=== PATIENT | male | born 1975 | race Caucasian/White ===

== ENCOUNTER 2019-06-20 09:10 | Emergency (ER) | payer OTHER, SELFPAY ==
[2019-06-20 09:18] VITALS: BP 119/71; PULSE 64; RESP 16; TEMP 37; O2SAT 99
--- NOTE | 2019-06-20 09:47 | ED.GENADUL_ITS ---
Discharge Plan Disposition Patient Disposition: HOME Condition: Good Discharge Details Chief Complaint: EyeProblem Clinical Impression: Foreign body in eye, Psoriasis, RAD (reactive airway disease) Primary Care Provider: Alicia,Local ED Provider: Pippa Centeno Home Meds and New Rx's Prescriptions: New Combivent Respimat 20-100 mcg/actuation mist 1 puff IH Q4H PRN (Reason: shortness of breath or wheezing) Qty: 4 RF: 0 prednisone 20 mg tablet 60 mg PO DAILY 5 Days Qty: 15 RF: 0 Continued quetiapine [Seroquel] 200 mg Tablet 200 mg PO QHS RF: 0 topiramate [Topamax] 200 mg Tablet 200 mg PO BID RF: 0 Combivent Respimat 20-100 mcg/actuation Mist 2 puff INHALATION Q4H RF: 0 triamcinolone acetonide 0.5 % Cream 1 applic TOPICAL BID RF: 0 Discharge Instructions Instructions: Bacitracin (Into the eye), Eye Foreign Body (ED) Additional Instructions: Encourage hydration. May use Tylenol and ibuprofen as needed for discomfort. Please apply half an inch of the bacitracin into your left eye 4 times daily for the next 5 days. Please call [facility] Saturday to schedule follow-up appointment. [phone] If you develop fever/chills, increased pain, change in her vision, discharge or other new/worsening symptoms please seek care urgently once again. I have asked her hospice care transitions coordinator help establish local family care physician. Please take the prednisone as prescribed for your psoriasis outbreak. Combivent as previously prescribed, this is been refilled for you. If you develop difficulty breathing, shortness of breath or the new/worsening symptoms please seek care urgently once again. Discharge Data Discharge Date/Time-TO BE ENTERED AT DEPARTURE: 06/20/19 10:19 Medical Decision Making Patient is a 43-year-old male, up-to-date on tetanus, with chief complaint of foreign body in the left eye. He reports that yesterday he was cutting siding from a house when a piece of debris hit him in the left eye. Since that time, he has had a foreign body sensation and pain in the eye, particular when blinking. States that the vision has been slightly blurry. Has not had any fevers or chills. Pain is been consistent, not increasing. No pain when the eyes open and he is moving the eye. On exam, patient had one small area of debris that was white, mostly at dust particle, in the lower lid. He also has a small area of swelling on the inferior medial aspect is likely the area of trauma. No large area of foreign debris, patient initially been concerned that there may be a nail still embedded in the eye. I do not see any evidence of metal or rest. Patient will be placed on antibiotic ointment. Patient also has noted a psoriasis exacerbation and has large areas of psoriasis on the left side of his head, left ear, bilateral elbows and upper extremities. He reports that typically he does a 5- day burst of 60 mg of prednisone is requesting a dosing of this. Is not had this in several months. Patient also reports that he is out of his Combivent and feels like with the change of the seasons he may need this more. Patient is an active smoker and I encouraged smoking cessation as this is likely contributing to his increased need for his inhaler. Patient is new to the area and is moving here soon. I have asked that he follow-up with [facility] regarding his trauma to the left eye. He was given return precautions. All of his questions and concerns were addressed, he is in agreement with this plan. HPI General Mode of arrival: ambulatory . Date/Time Provider Initiated Documentation: 06/20/19 09:47 . Limitations to Documentation: no limitations . Information obtained by: patient and RN notes reviewed . History of Present Illness 43 year old M presents to the emergency department with the chief complaint of left eye pain, FB sensation, described as severe, with intensity rated at 8. Quality is described as aching, and is localized to the eyes. Patient reports no radiation. Patient started experiencing this day(s) (1) and it has been constant. No relieving factors improve symptom(s), No exacerbating factors reported . Patient notes no other symptoms.. Patient did receive the following treatments prior to arrival, none Related Data Home Medications Medication Instructions Recorded Confirmed Combivent Respimat 2 puff INHALATION Q4H 06/20/19 06/20/19 ipratropium-albuterol [Combivent 1 puff IH Q4H PRN #4 gm 06/20/19 Respimat] prednisone 60 mg PO DAILY 5 Days #15 tab 06/20/19 quetiapine [Seroquel] 200 mg PO QHS 06/20/19 06/20/19 topiramate [Topamax] 200 mg PO BID 06/20/19 06/20/19 triamcinolone acetonide 1 applic TOPICAL BID 06/20/19 06/20/19 Previous Rx's Medication Instructions Recorded ipratropium-albuterol [Combivent 1 puff IH Q4H PRN #4 gm 06/20/19 Respimat] prednisone 60 mg PO DAILY 5 Days #15 tab 06/20/19 Allergies Allergy/AdvReac Type Severity Reaction Status Date / Time clarithromycin [From Biaxin] Allergy Hives Unverified 06/20/19 09:15 divalproex sodium Allergy Hives Unverified 06/20/19 09:16 [From Depakote] egg Allergy Anaphylaxsi Unverified 06/20/19 09:15 s General Stated Complaint: EyeProblem SUNSHINE: 4 Review of Systems Constitutional Constitutional: Reports as per HPI, Denies chills, Denies fatigue, Denies fever(s) and Denies headache(s) Eyes Eyes: Reports as per HPI ENT Ears, Nose, Mouth, and Throat: Denies headache(s) Cardiovascular Cardiovascular: Reports as per HPI, Denies chest pain and Denies lightheadedness Respiratory Respiratory: Denies cough Integumentary/Breasts Skin/Breast: Reports as per HPI, Denies rash, Denies skin pain and Denies skin swelling Neurologic Neurologic: Denies headache(s) and Denies radicular pain Endocrine Endocrine: Denies fatigue [facility] Social History Smoking/Tobacco Use Status: Current every day Alcohol Intake: never Substance use type: does not use Do you feel safe at home: Yes Do you feel safe in your relationship?: Yes Exam Const General: cooperative, healthy appearing, comfortable, no acute distress, well developed and well groomed Nutritional Appearance: average body habitus and well nourished Orientation: alert, awake and oriented x3 HENMT Head: normal to inspection, normocephalic and atraumatic Ears: hearing grossly normal bilaterally and external ears normal General nose exam: external nose normal and nares normal Face and sinus: normal facial exam and face symmetric Mouth: oral mucosae normal, lip normal and moist mucous membranes Eyes Visual Tuttle: normal visual tuttle by confrontation Alignment and Position: alignment normal and position normal Periorbital: periorbital findings normal Eyelids: eyelids normal Conjunctivae: conjunctivae normal Sclera: sclerae normal Cornea: corneas abnormal on the left fluorescein used and edema (small area of focal edema consistent with recent trauma), fluorescein used and other (small FB noted under slit lamp in lower lid, removed with qtip) Pupils: PERRL, normal by confrontation and accommodation normal EOM: EOM intact bilaterally Resp Effort & Inspection: normal respiratory effort, able to speak in complete sentences and no respiratory distress Skin General skin exam: no rashes or lesions noted Neuro General: alert, awake and oriented x3 Cranial Nerves: CN's II-XI intact bilaterally Cognition: normal cognition Speech: speech normal Gait: normal gait Psych Appearance: grossly normal and well kempt Mental Status: mental status grossly normal Speech and Movement: speech and movement normal Course Vital Signs Vital signs: Vital Signs Temperature 37 C 06/20/19 09:18 Pulse 64 06/20/19 09:18 Respiratory Rate 16 06/20/19 09:18 Blood Pressure 119/71 06/20/19 09:18 Pulse Oximetry 99 06/20/19 09:18 Temperature 37 C 06/20/19 09:18 Temperature Source Temporal Artery Scan 06/20/19 09:18 Pulse 64 06/20/19 09:18 Respiratory Rate 16 06/20/19 09:18 Respiratory Effort Non-Labored 06/20/19 09:22 Blood Pressure 119/71 06/20/19 09:18 Blood Pressure Position Supine 06/20/19 09:18 Pulse Oximetry 99 06/20/19 09:18 Oxygen Delivery Method Room Air 06/20/19 09:18 Oxygen Flow Rate 0 06/20/19 09:18 Pain Level 8 06/20/19 09:18
[2019-06-20] MEDS: Tetracaine 0.5% 4 ML BTL (10:21)
[2019-06-20] MEDS: Fluorescein STRIPS 100/BOX 1 MG (10:22)
== END 2019-06-20 10:19 | disposition home or self-care (01) ==
PROVIDERS: Emergency Provider Physician Assistant; PCP Family Medicine
DX: T15.92XA Foreign body on external eye, part unspecified, left eye, initial encounter (principal); L40.8 Other psoriasis; J45.909 Unspecified asthma, uncomplicated; F17.210 Nicotine dependence, cigarettes, uncomplicated
CPT/HCPCS: 99283

== ENCOUNTER 2019-08-02 18:39 | Emergency (ER) | payer OTHER, SELFPAY ==
[2019-08-02 18:40] VITALS: BP 135/91; PULSE 80; RESP 16; TEMP 36.9; O2SAT 96
--- NOTE | 2019-08-02 18:40 | ED.GENADUL_ITS ---
Discharge Plan Disposition Patient Disposition: HOME Condition: Stable Discharge Details Chief Complaint: Nk/Back Pain Clinical Impression: Back pain Primary Care Provider: Jeremiah Connell ED Provider: Jose Daniel Chan Home Meds and New Rx's Prescriptions: New methocarbamol 500 mg tablet 1,000 mg PO Q6H Qty: 20 RF: 0 ibuprofen 600 mg tablet 600 mg PO Q6H PRN (Reason: back pain) Qty: 20 RF: 0 Continued quetiapine [Seroquel] 200 mg Tablet 200 mg PO QHS RF: 0 topiramate [Topamax] 200 mg Tablet 200 mg PO BID RF: 0 Combivent Respimat 20-100 mcg/actuation Mist 2 puff INHALATION Q4H RF: 0 Combivent Respimat 20-100 mcg/actuation mist 1 puff IH Q4H PRN (Reason: shortness of breath or wheezing) Qty: 4 RF: 0 betamethasone valerate 0.1 % Ointment 1 applic TOPICAL DIRECTED RF: 0 Discharge Instructions Instructions: Back Pain (ED) Additional Instructions: You were seen in the emergency department today for evaluation of back pain. Take 650 mg of acetaminophen (Tylenol) every 6 hours in addition to 600 mg of ibuprofen every 6 hours. Do not take more Tylenol than this. It can be dangerous to take more than this. Return to the emergency department immediately if you develop any fevers, new weakness, numbness, inability to urinate, leaking of urine or stool, or for any other concerning or worsening symptoms at all. Stand Alone Forms: Work Release Medical Decision Making This patient is a 43-year-old male who presents to the emergency department with chief complaint of back pain. Based on the history, exam, this is not consistent with cauda equina syndrome, cord compression, discitis, osteomyelitis, epidural abscess, epidural hematoma, pyelonephritis, kidney stone. It is most likely musculoskeletal back pain. Patient will be discharged home on ibuprofen every 6 hours in addition to acetaminophen every 6 hours as well as a new prescription for methocarbamol. Patient agrees with his outpatient treatment plan, will be provided return precautions and discharge instructions. HPI My back hurts. This patient is a 43-year-old male who presents to the emergency department with chief complaint of back pain. He states it is a sharp pain, it is in his lower back, radiates into his left hip and sometimes down his leg. Movement of the back makes it worse. He believes he injured it 3 days ago when he slipped walking on some ice. He did not fall down but seemed to make a movement that made his back hurt. The next day he moved heavy boxes. He has taken Tylenol throughout the day yesterday, then he took ibuprofen last night and this morning but it has not helped. No fevers. No urinary incontinence, stool incontinence, numbness or tingling. He recently had a URI but no other illness. Nothing has really made it better. He does have a history of back surgery, laminectomy for back pain. Symptoms have been severe, constant. General Date/Time Provider Initiated Documentation: 08/02/19 18:40 . Related Data Home Medications Medication Instructions Recorded Confirmed Combivent Respimat 1 puff IH Q4H PRN #4 gm 06/20/19 Combivent Respimat 2 puff INHALATION Q4H 06/20/19 06/20/19 quetiapine [Seroquel] 200 mg PO QHS 06/20/19 06/20/19 topiramate [Topamax] 200 mg PO BID 06/20/19 06/20/19 betamethasone valerate 1 applic TOPICAL DIRECTED 08/02/19 08/02/19 ibuprofen 600 mg PO Q6H PRN #20 tab 08/02/19 methocarbamol 1,000 mg PO Q6H #20 tab NS 08/02/19 Previous Rx's Medication Instructions Recorded Combivent Respimat 1 puff IH Q4H PRN #4 gm 06/20/19 ibuprofen 600 mg PO Q6H PRN #20 tab 08/02/19 methocarbamol 1,000 mg PO Q6H #20 tab NS 08/02/19 Allergies Allergy/AdvReac Type Severity Reaction Status Date / Time clarithromycin [From Biaxin] Allergy Hives Unverified 08/02/19 18:47 divalproex sodium Allergy Hives Unverified 08/02/19 18:47 [From Depakote] egg Allergy Anaphylaxsi Unverified 08/02/19 18:47 s General SUNSHINE: 4 Review of Systems Narrative: Gen: no fevers. Card: no chest pain. Resp: No cough, difficulty breathing. Abd: no vomiting, abd pain. The rest of the 10 point review of systems is negative except as described in the HPI and above in the ROS. [facility] Social History Smoking/Tobacco Use Status: Current every day Alcohol Intake: never Drug use: Never Substance use type: does not use Do you feel safe at home: Yes Do you feel safe in your relationship?: Yes Exam Narrative Exam Narrative: Gen: no acute distress, alert. Neck: normal ROM. Lung: no respiratory distress. Abd: soft, non-tender, no hepatosplenomegaly. Upper extremity: no evidence of trauma. Lower extremity: no edema. Neuro: speech normal, no gross motor deficits. 1+ patellar reflexes bilatearlly. strength 5/5 in lower extremities. back: no tenderness, normal inspection. Psych: alert and oriented to person, place time, normal affect. Skin: warm, intact.
[2019-08-02] MEDS: Methocarbamol 500 MG TAB 1000 MG PO (18:54)
[2019-08-02] MEDS: Ketorolac 30 MG/ML VIAL IM (18:54)
[2019-08-02] MEDS: Methocarbamol 500 MG TAB 2000 MG PO (19:09)
== END 2019-08-02 19:10 | disposition home or self-care (01) ==
PROVIDERS: Emergency Provider Emergency Medicine; PCP Family Medicine
DX: M54.5 Low back pain (principal); W18.49XA Other slipping, tripping and stumbling without falling, initial encounter
CPT/HCPCS: 96372; 99284; 99283; J1885

== ENCOUNTER 2019-08-09 12:54 | Emergency (ER) | payer OTHER, SELFPAY ==
[2019-08-09] VITALS (8 sets, daily range): BP systolic 135–139; BP diastolic 83–84; PULSE 82–87; RESP 1–20; TEMP 36.7; O2SAT 97–98
[2019-08-09] MEDS: Albuterol/Ipratropium 3 ML UPD VIAL (13:25)
[2019-08-09] MEDS: Albuterol/Ipratropium 3 ML UPD VIAL 9 ML UPD (13:50)
--- NOTE | 2019-08-09 13:50 | W.ED.GENAD ---
Discharge Plan Disposition Patient Disposition: HOME Condition: Good Discharge Details Chief Complaint: RespSymp Clinical Impression: Asthma exacerbation, Bronchitis Primary Care Provider: Jeremiah Connell ED Provider: Lazaro Dai Home Meds and New Rx's Prescriptions: New ipratropium-albuterol 0.5 mg-3 mg(2.5 mg base)/3 mL solution for nebulization 3 ml IH Q6H Qty: 90 RF: 0 amoxicillin-pot clavulanate [Augmentin] 875-125 mg tablet 1 tab PO BID 10 Days Qty: 20 RF: 0 prednisone 20 mg tablet 60 mg PO DAILY 5 Days Qty: 15 RF: 0 acetaminophen-codeine [Tylenol-Codeine #3] 300-30 mg tablet 1 tab PO BID PRN (Reason: cough) Qty: 6 RF: 0 No Action quetiapine [Seroquel] 200 mg Tablet 200 mg PO QHS RF: 0 topiramate [Topamax] 200 mg Tablet 200 mg PO BID RF: 0 Combivent Respimat 20-100 mcg/actuation Mist 2 puff INHALATION Q4H RF: 0 Combivent Respimat 20-100 mcg/actuation mist 1 puff IH Q4H PRN (Reason: shortness of breath or wheezing) Qty: 4 RF: 0 betamethasone valerate 0.1 % Ointment 1 applic TOPICAL DIRECTED RF: 0 methocarbamol 500 mg tablet 1,000 mg PO Q6H Qty: 20 RF: 0 ibuprofen 600 mg tablet 600 mg PO Q6H PRN (Reason: back pain) Qty: 20 RF: 0 Discharge Instructions Instructions: Asthma (ED), Acute Bronchitis (ED) Additional Instructions: At this time there is no evidence of significant pneumonia on your x-ray. I am concerned that you may have a small pneumonia though in conjunction with an asthma exacerbation. Please use your inhaler, 2 puffs every 12 hours. Please use your new nebulizer as needed every 4-6 hours for the next 2 days. Please take the steroid as directed. Please take the Augmentin antibiotic as directed. As we discussed if your symptoms do not improve please return for further assessment. If you notice any worsening of your symptoms, or any new symptoms such as vomiting, diarrhea, fever, chills, shortness of breath, chest pain, numbness, weakness, or fainting , please return immediately to the emergency department for reevaluation. Please follow up with your primary care provider as soon as possible for reassessment and reevaluation. As always, it was a pleasure participating in your medical care today. Medical Decision Making This is a 43-year-old male with past medical history of asthma, and a family history of alpha-1 antitrypsin which he says he has been tested for but does not have the symptomatic complete allele, who presents today for evaluation of cough and wheeze. He recently moved up here from [place], he states that for the last week he has had a cough, with productive sputum, mild chills, but no fever. He has had mild chest pain when he coughs. He denies any red flags for pulmonary emboli. He is run out of the majority of his medications that he chronically manages his asthma with. He still smokes. He has recently completed a course of 5 days of prednisone at 40 mg daily, as well as Combivent inhaler and azithromycin pack. He has had minimal improvement with this. Exam demonstrates wheezes and reduced air movement however vital signs are normal with no tachycardia hypoxemia or tachypnea. Chest x-ray was ordered which shows no evidence of aris pneumonia, for breathing treatments were given over the course of greater than 2 hours, at the last breathing treatment the patient had notable improvement. Wonder if there was a component of a mucous plug or mild bronchiectasis. Patient is feeling much better, reassessment demonstrates notably improved breath sounds, decreased wheezes. I did discuss imaging options for the patient and at this time through notable discussion, weighing the risks and benefits, and a shared decision making process the patient has refused imaging at this time. Respecting the patient's wishes we will hold off on imaging. Screening EKG was also unremarkable. At this time signs and symptoms are clinically consistent with potential clinical mild pneumonia, bronchitis. Will treat with Augmentin, give him a nebulizer for home use, refill his DuoNeb's for home use, and give a Symbicort for home. We will additionally continue steroids. I did recommend to the patient further imaging but is he is holding off I offered that he can return anytime for additional work-up. I have extensively reviewed the treatment plan and discharge instructions with the patient. I have addressed all patient concerns at this time. The patient was made aware of what symptoms to monitor for that would warrant a return to the emergency department. Discussed the plan with the patient, they demonstrate verbal understanding and agreement with our assessment and plan at this time. EKG 13: 46 Rate 63, intervals normal, sinus rhythm, no significant ST elevations or depressions, no significant T wave inversions, small J-point elevation in V2, less than 1 mm, inconsistent with STEMI. No Q waves. FINDINGS: Lungs: Unremarkable. No consolidation. Pleural space: Unremarkable. No pleural effusion. No pneumothorax. Heart/Mediastinum: Unremarkable. No cardiomegaly. Bones/joints: Unremarkable. IMPRESSION: No acute findings. Thank you for allowing us to participate in the care of your patient. Dictated and Authenticated by: Katharine Harris MD 08/09/2019 3:25 PM Eastern Time ([place] & [place]) HPI General Date/Time Provider Initiated Documentation: 08/09/19 13:27. HPI Narrative: This is a pleasant 43-year-old male with a past medical history of familial alpha-1 antitrypsin deficiency but he is not symptomatic because of this, he does have chronic asthma/COPD, and is a regular smoker. He recently just moved up here from [facility]. He presents today for evaluation of cough mild shortness of breath. Patient states that 1 week ago he began to have a cough with productive yellow-green sputum. He saw an urgent care where he was given 40 mg of prednisone daily for 5 days, and inhaler/Combivent, as well as azithromycin. He is taking this and finished his azithromycin 3 to 4 days ago. He did have mild improvement initially but states that his symptoms have continued. He does admit to mild chest tightness when he coughs, but denies any other significant chest pain. He denies any arm neck or shoulder pain chest heaviness, or bandlike sensation. He denies any numbness tingling or weakness. He has no other complaints at this time. No other modifying factors. Related Data Home Medications Medication Instructions Recorded Confirmed Combivent Respimat 1 puff IH Q4H PRN #4 gm 06/20/19 08/09/19 Combivent Respimat 2 puff INHALATION Q4H 06/20/19 08/09/19 quetiapine [Seroquel] 200 mg PO QHS 06/20/19 08/09/19 topiramate [Topamax] 200 mg PO BID 06/20/19 08/09/19 betamethasone valerate 1 applic TOPICAL DIRECTED 08/02/19 08/09/19 ibuprofen 600 mg PO Q6H PRN #20 tab 08/02/19 08/09/19 methocarbamol 1,000 mg PO Q6H #20 tab NS 08/02/19 08/09/19 acetaminophen-codeine 1 tab PO BID PRN #6 tab 08/09/19 [Tylenol-Codeine #3] amoxicillin-pot clavulanate 1 tab PO BID 10 Days #20 tab 08/09/19 [Augmentin] ipratropium-albuterol 3 ml IH Q6H #90 ml 08/09/19 prednisone 60 mg PO DAILY 5 Days #15 tab 08/09/19 Previous Rx's Medication Instructions Recorded Combivent Respimat 1 puff IH Q4H PRN #4 gm 06/20/19 ibuprofen 600 mg PO Q6H PRN #20 tab 08/02/19 methocarbamol 1,000 mg PO Q6H #20 tab NS 08/02/19 acetaminophen-codeine 1 tab PO BID PRN #6 tab 08/09/19 [Tylenol-Codeine #3] amoxicillin-pot clavulanate 1 tab PO BID 10 Days #20 tab 08/09/19 [Augmentin] ipratropium-albuterol 3 ml IH Q6H #90 ml 08/09/19 prednisone 60 mg PO DAILY 5 Days #15 tab 08/09/19 Allergies Allergy/AdvReac Type Severity Reaction Status Date / Time clarithromycin [From Biaxin] Allergy Hives Unverified 08/09/19 16:06 divalproex sodium Allergy Hives Unverified 08/09/19 16:06 [From Depakote] egg Allergy Anaphylaxsi Unverified 08/09/19 16:06 s General Stated Complaint: RespSymp SUNSHINE: 4 Review of Systems All systems reviewed & are unremarkable except as noted in HPI and below PFSH Social History Smoking/Tobacco Use Status: Current every day Alcohol Intake: never Drug use: Never Substance use type: does not use Do you feel safe at home: Yes Do you feel safe in your relationship?: Yes Exam Narrative Exam Narrative: 1.Const: Well-nourished, Well-developed, appearing stated age 2.Eyes: PERRL, no conjunctival injection, and symmetrical lids. 3.ENT: Atraumatic external nose and ears. Moist MM. Neck: Symmetric, trachea midline, No thyromegaly. 4.CVS: +S1/S2, No murmurs or gallops. Peripheral pulses 2+ and equal in all extremities. Brisk capillary refill in all extremities. 5.RESP: Notable wheeze, poor air movement, no crackles. 6.GI: Soft, Nontender/Nondistended, No hepatosplenomegaly. No guarding or rebound. 7.MSK: Normocephalic/Atraumatic, Extremities w/o deformity or ttp No cyanosis or clubbing, Normal movement of all extremities. No calf tenderness. 8.Skin: Warm, Dry. No rashes or lesions. 9.Neuro: combat control II-XII grossly intact. Sensation grossly intact, no focal neurologic deficits. 10.Psych: (AAO) x3. Appropriate mood and affect Course Vital Signs Vital signs: Vital Signs Temperature 36.7 C 08/09/19 13:16 Pulse 82 08/09/19 13:16 Respiratory Rate 20 08/09/19 13:16 Blood Pressure 139/83 08/09/19 13:16 Pulse Oximetry 98 08/09/19 13:16 Temperature 36.7 C 08/09/19 13:16 Temperature Source Skin 08/09/19 13:16 Pulse 82 08/09/19 13:16 Respiratory Rate 20 08/09/19 13:16 Blood Pressure 139/83 08/09/19 13:16 Blood Pressure Position Sitting 08/09/19 13:16 Pulse Oximetry 98 08/09/19 13:16 Oxygen Delivery Method Room Air 08/09/19 13:16 Oxygen Flow Rate 0 08/09/19 13:16
[2019-08-09] MEDS: methylPREDNISolone SUCC 125 MG VIAL IVP (14:04)
--- NOTE | 2019-08-09 14:35 | DI.RAD_ITS ---
EXAM: XR CHEST 2V PA LATERAL CLINICAL HISTORY: cough, sob, rule out pneumonia. TECHNIQUE: 2D digital imaging was performed. COMPARISON: No exams were available for comparison FINDINGS: LUNGS: Clear. No pleural abnormality seen. HEART: Normal. MEDIASTINUM: Normal. OTHER FINDINGS:Normal. IMPRESSION: No acute pulmonary findings.
--- NOTE | 2019-08-09 15:25 | DI.VRAD_ITS ---
PROCEDURE INFORMATION: Exam: XR Chest, 2 Views Exam date and time: 08/09/2019 1:37 PM Age: 43 years old Clinical indication: Other: Cough, SOB, rule out pneumonia TECHNIQUE: Imaging protocol: XR of the chest Views: 2 views. COMPARISON: No relevant prior studies available. FINDINGS: Lungs: Unremarkable. No consolidation. Pleural space: Unremarkable. No pleural effusion. No pneumothorax. Heart/Mediastinum: Unremarkable. No cardiomegaly. Bones/joints: Unremarkable. IMPRESSION: No acute findings. Dictated and Authenticated by: Katharine Harris MD. Ordering:MARGARITO Willis MD
[2019-08-09] MEDS: Albuterol/Ipratropium 3 ML UPD VIAL UPD (15:26)
[2019-08-09] MEDS: Budesonide/Formoterol 160/4.5 6 GM 60 PUFF INH IH (16:28)
== END 2019-08-09 16:28 | disposition home or self-care (01) ==
PROVIDERS: Emergency Provider Student in an Organized Health Care Education/Training Program; PCP Family Medicine
DX: J44.0 Chronic obstructive pulmonary disease with (acute) lower respiratory infection (principal); J20.9 Acute bronchitis, unspecified; J45.901 Unspecified asthma with (acute) exacerbation; F17.210 Nicotine dependence, cigarettes, uncomplicated
CPT/HCPCS: 93005; 94640; 96374; 99285; 71046; 93010; 99284; J2930; J7620

== ENCOUNTER 2019-08-25 17:49 | Emergency (ER) | payer OTHER, SELFPAY ==
[2019-08-25 17:52] VITALS: BP 155/100; PULSE 105; RESP 22; TEMP 36.4; O2SAT 97
--- NOTE | 2019-08-25 17:52 | ED.GENADUL_ITS ---
Discharge Plan Disposition Patient Disposition: HOME Condition: Good Discharge Details Chief Complaint: SOB Clinical Impression: Asthma exacerbation Primary Care Provider: Jeremiah Connell ED Provider: Pippa Centeno Home Meds and New Rx's Prescriptions: New prednisone 10 mg tablet 10 mg PO DAILY Qty: 36 RF: 0 dextromethorphan polistirex [Robitussin ER] 30 mg/5 mL suspension,extended rel 12 hr 10 ml PO Q12H PRN (Reason: cough) Qty: 89 RF: 0 Continued quetiapine [Seroquel] 200 mg Tablet 200 mg PO QHS RF: 0 topiramate [Topamax] 200 mg Tablet 200 mg PO BID RF: 0 Combivent Respimat 20-100 mcg/actuation Mist 2 puff INHALATION Q4H RF: 0 betamethasone valerate 0.1 % Ointment 1 applic TOPICAL DIRECTED RF: 0 ibuprofen 600 mg tablet 600 mg PO Q6H PRN (Reason: back pain) Qty: 20 RF: 0 ipratropium-albuterol 0.5 mg-3 mg(2.5 mg base)/3 mL solution for nebulization 3 ml IH Q6H Qty: 90 RF: 0 Discharge Instructions Instructions: Albuterol (By breathing), Asthma (ED) Additional Instructions: Encourage water intake. Stop smoking. Use inhaler and nebulizer as previously a dvised. May use the albuterol inhaler 2 puff every 4 hours as needed for shortness of breath or wheezing. Please take steroids as prescribed, given dose for today. If you develop difficulty breathing, increased shortness of breath or other new/worsening symptoms please seek care urgently once again. Please begin probiotic for diarrhea. Please bring in stool sample when able. We will contact you with any positive results. REturn if diarrhea becomes more frequent, you are unable to stay hydrated or note blood in your stool. Referrals: Jeremiah Connell [Primary Care Provider] - Medical Decision Making Patient is a 43 year old male with hx of COPD, asthma, familial alpha-1 trypsin deficiency. He is an active smoker. Has been treated 2 times thus far for asthma exacerbation with concern for underlying infectious etiology. He was initially treated with prednisone and azithromycin. He was recently treated with prednisone and Augmentin. He reports that despite this, his symptoms have progressed feels worse now than he did initially. Denies any recent fevers or chills. He is endorsing some pleuritic discomfort particular with cough. Is feeling short of breath. Has used his nebulizer x3 today with no improvement in his symptoms. Denies any chest pain at rest or exertional discomfort. No palpitations. States he has been having some diarrhea. Denies any abdominal pain. He reports that he has had diarrhea for the past few weeks. Endorses approximately 8 bowel movements per day. States that they have been soft. Nahum es watery bowel movements. No blood in his stool. Denies any nausea or vomiting. No radiating pain. On exam, patient is resting comfortably. He was noted to be tachycardic at 105 initially. Oxygen 97% room air and patient is currently afebrile. Lungs are clear in all tuttle. Plan for chest x-ray. No lower extremity edema, no calf discomfort. Normal cardiac exam. Chest x-ray reviewed by radiologist: FINDINGS: Lungs: Unremarkable. No consolidation. Pleural space: Unremarkable. No pleural effusion. No pneumothorax. Heart/Mediastinum: Unremarkable. No cardiomegaly. Bones/joints: Unremarkable. IMPRESSION: No acute findings. Discussed these findings with the patient. He continues to endorse shortness of breath. No improvement after nebulizer. I am concerned at this time for other underlying etiology as this is now his third time presenting with similar symptoms. I have low clinical concern for pulmonary embolism, I feel that screening CT is appropriate particularly as he is having chest discomfort. This will also evaluate further for other underlying etiology as source of his shortness of breath. EKG reviewed by Dr. Stanley, patient normal sinus rhythm with a rate of 89. No acute ischemic changes noted. Labs reviewed. White count of 12.7. This may be associated with the recent steroid use. Potassium slightly low at 3.2. Troponin is normal less than 0.05. BNP is normal at 21. CT reviewed by radiologist: FINDINGS: Pulmonary arteries: No pulmonary embolism to the segmental branches. Evaluation of the subsegmental arteries is limited by suboptimal contrast bolus timing. Aorta: The aorta is normal. Lungs: Unremarkable. No consolidation. No masses. Pleural space: Unremarkable. No pneumothorax. No pleural effusion. Heart: Unremarkable. No cardiomegaly. No pericardial effusion. Mediastinum: Small hiatal hernia. Lymph nodes: Unremarkable. No enlarged lymph nodes. Bones/joints: Multilevel endplate irregularity in the mid thoracic spine is favored to represent degenerative Schmorl's nodes. Soft tissues: Unremarkable. Other findings: No acute abnormality in the visualized upper abdomen. IMPRESSION: No pulmonary embolism to the segmental branches. Evaluation of the subsegmental arteries is limited by suboptimal contrast bolus timing. Discussed these findings with the patient. He reports that the steroids and antibiotics seem like they are working well for him but that approximately 2 to 3 days after stopping the steroids, his symptoms began to return. After his initial nebulizer, more wheezing was noted on exam. I am concerned for cont inued COPD exacerbation. I did advise this is likely associated with his heavy smoking and once again encouraged smoking cessation. Plan for a longer taper of steroids in hopes that this will help with persistent wheezing and symptoms. He was given strict return precautions. I have asked our healthcare recruiter to help arrange follow-up with primary care, patient is new to the area and just recently established. Improving he will be seen at the end of the week. Patient is requesting Robitussin. Given the patient's persistent diarrhea, plan to obtain stool sample. Were unable to obtain 1 on hospital. Will send home with sample collection kit. Would like to test for C. difficile. Discussed this with the patient. Encourage hydration. Encourage smoking cessation. All his questions and concerns were addressed and is in agreement with plan. HPI General Mode of arrival: ambulatory . Date/Time Provider Initiated Documentation: 08/25/19 17:51 . Limitations to Documentation: no limitations . Information obtained by: patient and RN notes reviewed . HPI Narrative: Patient is a 43-year-old male presents today with chief complaint of shortness of breath and cough. Patient was here on 08/09/2019 at which time he was diagnosed with asthma exacerbation and bronchitis. Was treated at that time with prednisone and Augmentin. He has been using nebulizer to help with symptoms but reports that this is stopped being of any benefit to him. Patient smokes 1+ packs per day. Patient has history of asthma, COPD and family alpha-1 antitrypsin deficiency. Prior to this recent treatment, patient was also treated with amount of prednisone and azithromycin Related Data Home Medications Medication Instructions Recorded Confirmed Combivent Respimat 2 puff INHALATION Q4H 06/20/19 08/25/19 quetiapine [Seroquel] 200 mg PO QHS 06/20/19 08/25/19 topiramate [Topamax] 200 mg PO BID 06/20/19 08/25/19 betamethasone valerate 1 applic TOPICAL DIRECTED 08/02/19 08/25/19 ibuprofen 600 mg PO Q6H PRN #20 tab 08/02/19 08/25/19 ipratropium-albuterol 3 ml IH Q6H #90 ml 08/09/19 08/25/19 dextromethorphan polistirex 10 ml PO Q12H PRN #89 ml 08/25/19 [Robitussin ER] prednisone 10 mg PO DAILY #36 tab 08/25/19 Previous Rx's Medication Instructions Recorded ibuprofen 600 mg PO Q6H PRN #20 tab 08/02/19 ipratropium-albuterol 3 ml IH Q6H #90 ml 08/09/19 dextromethorphan polistirex 10 ml PO Q12H PRN #89 ml 08/25/19 [Robitussin ER] prednisone 10 mg PO DAILY #36 tab 08/25/19 Allergies Allergy/AdvReac Type Severity Reaction Status Date / Time clarithromycin [From Biaxin] Allergy Hives Unverified 08/25/19 17:57 divalproex sodium Allergy Hives Unverified 08/25/19 17:57 [From Depakote] egg Allergy Anaphylaxsi Unverified 08/25/19 17:57 s General SUNSHINE: 4 Review of Systems Constitutional Constitutional: Reports as per HPI, Denies chills, Denies fever(s), Denies headache(s), Denies lethargy and Denies poor appetite Eyes Eyes: Denies change in vision ENT Ears, Nose, Mouth, and Throat: Denies dizziness and Denies headache(s) Cardiovascular Cardiovascular: Reports as per HPI, Denies chest pain, Denies chest pain at rest, Denies chest pain with activity, Denies syncope, Denies lightheadedness, Denies radiating jaw, neck or arm pain, Denies palpitations, Reports dyspnea and Reports dyspnea on exertion Respiratory Respiratory: Reports as per HPI, Denies chest congestion, Denies cough, Denies hemoptysis, Denies excessive phlegm production, Reports pain on inspiration, Reports pain with cough, Reports dyspnea, Reports dyspnea on exertion, Denies stridor and Reports wheezing Gastrointestinal Gastrointestinal: Reports as per HPI, Denies abdominal pain, Reports change in bowel habits (reports diarrhea x 1 month), Denies diarrhea, Denies nausea and Denies vomiting Genitourinary Genitourinary: Denies system reviewed and no additional complaints, except as docu (denies change in urinary habits) Musculoskeletal Musculoskeletal: Reports as per HPI and Denies back pain Integumentary/Breasts Skin/Breast: Reports as per HPI and Denies rash Neurologic Neurologic: Reports as per HPI, Denies dizziness, Denies syncope and Denies headache(s) Endocrine Endocrine: Denies palpitations Allergic/Immunologic Allergic/Immunologic: Reports wheezing [facility] Social History Smoking/Tobacco Use Status: Current every day Alcohol Intake: never Drug use: Never Substance use type: does not use Do you feel safe at home: Yes Do you feel safe in your relationship?: Yes Exam Const General: cooperative, healthy appearing, comfortable, no acute distress and well developed Nutritional Appearance: well nourished and overweight Orientation: alert, awake and oriented x3 HENMT Head: normal to inspection Ears: hearing grossly normal bilaterally Mouth: moist mucous membranes Chest Chest: normal inspection of the chest, normal palpation of entire chest wall and no crepitus Resp Effort & Inspection: normal respiratory effort, able to speak in complete sente nces and no respiratory distress Auscultation: clear to auscultation bilaterally, no rales, no rhonchi and no wheezes Cardio Rate: regular rate Rhythm: regular rhythm Heart Sounds: S1 normal and S2 normal GI Inspection: normal to inspection, no edema and non-distended Palpation: soft, no hepatosplenomegaly, not firm, no guarding, not rigid and nontender Auscultation: normal bowel sounds Back/Spine/Pelvis Back: no CVA tenderness Thoracic/Lumbar Spine: thoracic and lumbar spine normal to inspection Skin General skin exam: no rashes or lesions noted Trauma: no lacerations or abrasions Neuro General: alert, awake and oriented x3 Cognition: normal cognition Speech: speech normal Gait: normal gait Extrem General: normal to inspection, normal capillary refill, no pedal edema, no calf tenderness and normal gait Psych Appearance: grossly normal and well kempt Mental Status: mental status grossly normal Speech and Movement: speech and movement normal
[2019-08-25 18:05] VITALS: RESP 1; RESP 8; O2SAT 97
[2019-08-25] MEDS: Albuterol/Ipratropium 3 ML UPD VIAL UPD (18:05)
--- NOTE | 2019-08-25 18:19 | DI.RAD_ITS ---
EXAM: XR CHEST 2V PA LATERAL INDICATION: SOB, cough. COMPARISON: XR CHEST 2V PA LATERAL from 08/09/2019 TECHNIQUE: 2D digital imaging was performed. FINDINGS: Heart size is normal. The left diaphragm is mildly elevated. The lungs appear clear. No infiltrate or effusion is seen. IMPRESSION: Negative chest x-ray.
--- NOTE | 2019-08-25 18:37 | DI.VRAD_ITS ---
PROCEDURE INFORMATION: Exam: XR Chest, 2 Views Exam date and time: 08/25/2019 5:59 PM Age: 43 years old Clinical indication: Other: SOB, cough TECHNIQUE: Imaging protocol: XR of the chest Views: 2 views. COMPARISON: CR XR CHEST 2V PA LATERAL 08/09/2019 2:35 PM FINDINGS: Lungs: Unremarkable. No consolidation. Pleural space: Unremarkable. No pleural effusion. No pneumothorax. Heart/Mediastinum: Unremarkable. No cardiomegaly. Bones/joints: Unremarkable. IMPRESSION: No acute findings. Dictated and Authenticated by: Yahir Marques MD. Ordering:NADINE Das MD
[2019-08-25 18:42] LABS: Abs Immature Grans 0.07 k/cumm (0.0-0.09); Absolute Basophil Count 0.09 k/cumm (0.0-0.2); Absolute Eosinophil Count 0.34 k/cumm (0.0-0.7); Absolute Monocyte Count 0.85 k/cumm (0.11-0.7); Basophils % 0.7; Eosinophils % 2.7; HGB 15.1 g/dL (13.5-17.5); Immature Grans % 0.5 %; Lymphocytes % 32.3; Mean Corp. HGB Concentration 34.3 g/dL (32.0-36.0); Mean Corpuscular Hemoglobin 32.9 pg (27.0-33.0); Mean Corpuscular Volume 95.9 fL (80-95); Mean Platelet Volume 10.2 fL (8.0-11.0); Monocytes % 6.7; Neutrophils % 57.1; Platelet Count 279 x1000/uL (130-400); RBC 4.59 m/cumm (4.50-6.00); White Blood Cell Count 12.74 k/cumm (4.4-10.8)
[2019-08-25 18:43] LABS: Absolute Lymphocyte Count 4.12 k/cumm (1.2-3.4); Absolute Neutrophil Count 7.27 k/cumm (1.2-6.7)
[2019-08-25] MEDS: Normal Saline Flush 10 ML SYR IVP (18:44)
[2019-08-25] MEDS: Normal Saline - Diluent 50 ML VIAL IV (18:49)
[2019-08-25] MEDS: Omnipaque 350 MG/ML 100 ML BTL IJ (18:49)
--- NOTE | 2019-08-25 18:55 | DI.CT_ITS ---
EXAM: CT CHEST PE CTA CLINICAL HISTORY: SOB TECHNIQUE: Post IV contrast according to the pulmonary embolism protocol. Axial CT angiography was performed with multi-slice acquisition and multi-planar and/or 3D reconstruc tions. COMPARISON: No exams were available for comparison FINDINGS: The exam is mildly limited by patient motion. No pulmonary artery filling defects are seen. The aorta is normal in diameter and shows no evidence of dissection. There are no pleural or pericardial effus ions or focal infiltrates. There is no evidence of adenopathy. Patient is status post cholecystectomy . The visualized portions of the upper abdomen are unremarkable. IMPRESSION: No evidence of pulmonary emboli or other acute abnormality.
[2019-08-25] MEDS: Normal Saline 1,000 ML 1000 ML IV (19:00)
[2019-08-25 19:06] VITALS: O2SAT 89
[2019-08-25 19:08] VITALS: O2SAT 94
--- NOTE | 2019-08-25 19:09 | DI.VRAD_ITS ---
PROCEDURE INFORMATION: Exam: CT Angiography Chest With Contrast Exam date and time: 08/25/2019 6:31 PM Age: 43 years old Clinical indication: Other: SOB TECHNIQUE: Imaging protocol: Computed tomographic angiography of the chest with intravenous contrast. 3D rendering: MIP and/or 3D reconstructed images were created by the technologist. Radiation optimization: All CT scans at this facility use at least one of these dose optimization techniques: automated exposure control; mA and/or kV adjustment per patient size (includes targeted exams where dose is matched to clinical indication); or iterative reconstruction. Contrast material: OMNIPAQUE 350; Contrast volume: 83 ml; Contrast route: IV; COMPARISON: CR XR CHEST 2V PA LATERAL 08/25/2019 6:19 PM FINDINGS: Pulmonary arteries: No pulmonary embolism to the segmental branches. Evaluation of the subsegmental arteries is limited by suboptimal contrast bolus timing. Aorta: The aorta is normal. Lungs: Unremarkable. No consolidation. No masses. Pleural space: Unremarkable. No pneumothorax. No pleural effusion. Heart: Unremarkable. No cardiomegaly. No pericardial effusion. Mediastinum: Small hiatal hernia. Lymph nodes: Unremarkable. No enlarged lymph nodes. Bones/joints: Multilevel endplate irregularity in the mid thoracic spine is favored to represent degenerative Schmorl's nodes. Soft tissues: Unremarkable. Other findings: No acute abnormality in the visualized upper abdomen. IMPRESSION: No pulmonary embolism to the segmental branches. Evaluation of the subsegmental arteries is limited by suboptimal contrast bolus timing. Dictated and Authenticated by: Yahir Marques MD. Ordering:NADINE Das MD
[2019-08-25 19:10] LABS: ALT 41 U/L (16-63); AST 27 U/L (15-37); Albumin 3.9 g/dL (3.4-5.0); Alkaline Phosphatase 65 U/L (46-116); Anion Gap 10.1 mmol/L (3-11); BUN 13 mg/dL (7-18); Bilirubin, Total 0.5 mg/dL (0.2-1.0); CO2 27.9 mmol/L (21.0-32.0); CREATININE 0.85 mg/dL (0.70-1.30); Calcium 9.1 mg/dL (8.5-10.1); Chloride 104 mmol/L (98-107); Glucose 100 mg/dL (74-106); Potassium 3.2 mmol/L (3.5-5.1); Sodium 142 mmol/L (136-145); Total Protein 7.5 g/dL (6.4-8.2)
[2019-08-25 19:13] LABS: Magnesium 2.1 mg/dL (1.8-2.4); NT-proBNP 21 pg/mL (<300)
[2019-08-25 19:23] LABS: Troponin I < 0.05 ng/Ml (<0.06)
[2019-08-25 19:45] VITALS: BP 122/64; PULSE 84; RESP 18; O2SAT 92
[2019-08-25] MEDS: Albuterol HFA 8 GM 60 PUFF INH IH (20:03)
[2019-08-25] MEDS: predniSONE 20 MG TAB 60 MG PO (20:03)
[2019-08-25 20:04] VITALS: BP 121/75; PULSE 72; RESP 19; TEMP 36.8; O2SAT 92
== END 2019-08-25 20:00 | disposition home or self-care (01) ==
PROVIDERS: Emergency Provider Physician Assistant; PCP Family Medicine
DX: J44.0 Chronic obstructive pulmonary disease with (acute) lower respiratory infection (principal); J45.901 Unspecified asthma with (acute) exacerbation; R07.81 Pleurodynia; R19.7 Diarrhea, unspecified; F17.210 Nicotine dependence, cigarettes, uncomplicated
CPT/HCPCS: 71275; 80053; 93005; 94640; 96360; 99285; 71046; 83735; 83880; 84484; 85025; 85379; 93010; 99284; J3490; J7512; J7620

== ENCOUNTER 2019-09-10 12:14 | Emergency (ER) | payer OTHER, SELFPAY ==
[2019-09-10 12:16] VITALS: BP 142/81; PULSE 78; RESP 18; TEMP 36.6; O2SAT 98
--- NOTE | 2019-09-10 12:23 | W.ED.GENAD ---
Discharge Plan Disposition Patient Disposition: HOME Condition: Good Discharge Details Chief Complaint: Nk/Back Pain Clinical Impression: Back pain Primary Care Provider: Jeremiah Connell ED Provider: Lazaro Dai Home Meds and New Rx's Prescriptions: New acetaminophen [Mapap Extra Strength] 500 MG tablet 1,000 mg PO Q6H 5 Days Qty: 60 RF: 0 prednisone 50 MG tablet 50 mg PO DAILY Qty: 5 RF: 0 lidocaine [Lidoderm] 1 PATCH patch 1 patch Topical Q24H Qty: 4 RF: 0 ibuprofen [Motrin IB] 200 MG tablet 600 mg PO Q6H 5 Days Qty: 60 RF: 0 albuterol sulfate 90 mcg/actuation HFA aerosol inhaler 2 puff IH Q6H PRN (Reason: shortness of breath) Qty: 6.7 RF: 0 cyclobenzaprine 10 mg tablet 10 mg PO TID Qty: 14 RF: 0 Combivent Respimat 20-100 mcg/actuation mist 1 puff IH QID Qty: 4 RF: 0 Continued quetiapine [Seroquel] 200 mg Tablet 200 mg PO QHS RF: 0 topiramate [Topamax] 200 mg Tablet 200 mg PO BID RF: 0 Combivent Respimat 20-100 mcg/actuation Mist 2 puff INHALATION Q4H RF: 0 betamethasone valerate 0.1 % Ointment 1 applic TOPICAL DIRECTED RF: 0 ipratropium-albuterol 0.5 mg-3 mg(2.5 mg base)/3 mL solution for nebulization 3 ml IH Q6H Qty: 90 RF: 0 dextromethorphan polistirex [Robitussin ER] 30 mg/5 mL suspension,extended rel 12 hr 10 ml PO Q12H PRN (Reason: cough) Qty: 89 RF: 0 ibuprofen 200 mg Capsule 600 mg PO PRN PRNRF: 0 Discharge Instructions Instructions: Back Pain (ED) Additional Instructions: At this time your signs and symptoms are clinically consistent with a back sprain. This can cause significant pain and take a fair bit of time to heal. I expect 1 to 2 months for potential resolution. In the meantime do not lift anything greater than 5 pounds for the next 2 weeks. Avoid any significant vigorous physical activity. Perform easy gentle regular activities at home without any significant bending or lifting. Please take the steroids as directed. You have been given a prescription for Lidoderm patch. If your insurance does not cover this you can get [id number] Lidoderm patches at 4% which are almost just as effective. Please take the Flexeril as directed but do not take it when driving or operating any vehicles or heavy machinery, swimming, taking long baths, or operating firearms. Please use a heating pad as often as possible on your back. Perform daily gentle stretches on your back. Please continue to take the Tylenol and Motrin. You can take 1000 mg of Tylenol every 6 hours and 600 mg of ibuprofen every 6 hours. If you notice any worsening of your symptoms, or any new symptoms such as vomiting, diarrhea, fever, chills, shortness of breath, chest pain, numbness or tingling in your groin or legs, weakness in your legs, loss of control for your bowels or bladder, or fainting , please return immediately to the emergency department for reevaluation. Please follow up with your primary care provider as soon as possible for reassessment and reevaluation. As always, it was a pleasure participating in your medical care today. Stand Alone Forms: Work Release Referrals: Jeremiah Connell [Primary Care Provider] - Discharge Data Discharge Date/Time-TO BE ENTERED AT DEPARTURE: 09/10/19 16:37 Medical Decision Making <Diana Parham - Last Filed: 09/11/19 08:47> 43-year-old male presents lower back pain with radicular pain radiating into bilateral lower extremities. Onset of urinary incontinence today. Also reports constipation. Has tried lidocaine patch, Flexeril, ice, and ibuprofen at home prior to arrival with little to no relief. He does have a history of back surgery x2, reports a discectomy and laminectomy. He denies any saddle anesthesia at this time. At this time is concern for cauda equina due to urinary incontinence and constipation. Spoke with radiologist Dr. Chacko regarding MRI order he confirmed MRI with and without L-spine would be the correct order. On exam patient has intact rectal tone, decreased dorsiflexion bilaterally to lower extremities. Plantar flexion is intact. Positive straight leg test. He has tingling and numbness noted to his left lateral calf. On bladder scan he only has 129 mils residual urine and does not feel as if he needs to urinate at this time. Morphine and Zofran IM ordered for pain relief. 1344: Care signed out to Dr. Dai pending MRI, patient continues to complain of pain but remains hemodynamically stable at the time of this dictation. <Lazaro Dai, DO - Last Filed: 09/11/19 08:03> Case was signed out to me by my colleague Tegan Parham, please refer to her documentation, HPI and assessment plan. Case was signed out pending MRI results. MRI results have returned and demonstrates no evidence of central cord compression, or other acute concerning pathology. There is a small left paracentral disc herniation at L5-S1. No nerve root compression. Reassessment was performed, and on reassessment the patient still continued to demonstrate intact reflexes, normal medial thigh sensation throughout, no bowel or bladder incontinence. He had 120 cc of urine in his bladder prevoid, post void he had 20 cc of urine. No clinical evidence of central cord compression. Pain was notably improved. Patient was prescribed Flexeril, NSAIDs, Lidoderm patch, and a burst of steroids for treatment of his symptoms. Patient did request that we refill his inhaler prescriptions as he just ran out of them. We will do this for the patient. Discussed red flags for which to return, at time of disposition patient symptoms are clinically inconsistent with cauda equina syndrome, spinal epidural abscess, or acute life-threatening neurovascular spinal pathology. I have extensively reviewed the treatment plan and discharge instructions with the patient. I have addressed all patient concerns at this time. The patient was made aware of what symptoms to monitor for that would warrant a return to the emergency department. Discussed the plan with the patient, they demonstrate verbal understanding and agreement with our assessment and plan at this time. The conus medullaris has a normal appearance and location. At L5-S1, there is disc desiccation. There are degenerative endplate signal changes. There is a small left paracentral disc herniation. No significant nerve root compression or central spinal canal stenosis results. No significant neural foraminal stenosis is present. At L4-L5, there is no significant central spinal canal or neural foraminal stenosis. No focal disc herniation is present. At L3-L4, there is no focal disc herniation, central spinal canal or neural foraminal stenosis. At L2-L3, there is no focal disc herniation, central spinal canal or neural foraminal stenosis. At L1-L2, there is no focal disc herniation, central spinal canal or neural foraminal stenosis. Following contrast administration, no enhancing lesions are identified.] No evidence of an obstructing mass or enhancing lesion in the spinal cord. Small left paracentral disc herniation at L5-S1. No nerve root compression or central spinal canal stenosis results. The findings were discussed with the Emergency Department on the date of the examination HPI <Diana Parham - Last Filed: 09/11/19 08:47> General Date/Time Provider Initiated Documentation: 09/10/19 12:22. History of Present Illness 43 year old M presents to the emergency department with the chief complaint of Back Pain, urinary incontinence, described as moderate, and is localized to the back, pelvis and lower extremity. Patient extremity (LLE). Patient started experiencing this day(s) (1) Patient notes other (Constipation increased urinary frequency and incontinence). Patient did receive the following treatments prior to arrival, NSAID and other (Lidocaine) Related Data Home Medications Medication Instructions Recorded Confirmed Combivent Respimat 2 puff INHALATION Q4H 06/20/19 09/10/19 quetiapine [Seroquel] 200 mg PO QHS 06/20/19 09/10/19 topiramate [Topamax] 200 mg PO BID 06/20/19 09/10/19 betamethasone valerate 1 applic TOPICAL DIRECTED 08/02/19 09/10/19 ipratropium-albuterol 3 ml IH Q6H #90 ml 08/09/19 09/10/19 dextromethorphan polistirex 10 ml PO Q12H PRN #89 ml 08/25/19 09/10/19 [Robitussin ER] acetaminophen [Mapap Extra 1,000 mg PO Q6H 5 Days #60 tab 09/10/19 Strength] albuterol sulfate 2 puff IH Q6H PRN #6.7 gm 09/10/19 cyclobenzaprine 10 mg PO TID #14 tab 09/10/19 ibuprofen 600 mg PO PRN PRN 09/10/19 09/10/19 ibuprofen [Motrin Ib] 600 mg PO Q6H 5 Days #60 tab 09/10/19 ipratropium-albuterol [Combivent 1 puff IH QID #4 gm 09/10/19 Respimat] lidocaine [Lidoderm] 1 patch TOPICAL Q24H #4 patch 09/10/19 prednisone 50 mg PO DAILY #5 tab 09/10/19 Previous Rx's Medication Instructions Recorded ipratropium-albuterol 3 ml IH Q6H #90 ml 08/09/19 dextromethorphan polistirex 10 ml PO Q12H PRN #89 ml 08/25/19 [Robitussin ER] acetaminophen [Mapap Extra 1,000 mg PO Q6H 5 Days #60 tab 09/10/19 Strength] albuterol sulfate 2 puff IH Q6H PRN #6.7 gm 09/10/19 cyclobenzaprine 10 mg PO TID #14 tab 09/10/19 ibuprofen [Motrin Ib] 600 mg PO Q6H 5 Days #60 tab 09/10/19 ipratropium-albuterol [Combivent 1 puff IH QID #4 gm 09/10/19 Respimat] lidocaine [Lidoderm] 1 patch TOPICAL Q24H #4 patch 09/10/19 prednisone 50 mg PO DAILY #5 tab 09/10/19 Allergies Allergy/AdvReac Type Severity Reaction Status Date / Time clarithromycin [From Biaxin] Allergy Hives Unverified 09/10/19 12:56 divalproex sodium Allergy Hives Unverified 09/10/19 12:56 [From Depakote] egg Allergy Anaphylaxsi Unverified 09/10/19 12:56 s General Stated Complaint: Nk/Back Pain SUNSHINE: 2 Review of Systems <Diana Parham - Last Filed: 09/11/19 08:47> Narrative: Constitutional: Negative for weight loss, alert and oriented, well groomed, normal body habitus, appears comfortable. HEENT: Denies trauma, headaches, blurry vision, nasal discharge, sore throat, trouble swallowing. Chest: Denies chest pain, palpitations, irregular rhythm, hypertension. Respiratory: Denies Shortness of breath, cough, hemoptysis. GI: Denies abdominal pain, nausea, vomiting, diarrhea, Positive constipation. : New onset urinary incontinence today, no rectal bleeding. Neuro: Denies dizziness, blurry vision, weakness, syncope, headache or facial numbness. Has tingling and numbness to left lateral lower extremity, denies saddle anesthesia Hematologic: Denies easy bruising, intolerance to heat or cold, hair loss. Gastrointestinal Gastrointestinal: Reports constipation Genitourinary Genitourinary: Reports urinary frequency and Reports urinary incontinence Musculoskeletal Musculoskeletal: Reports back pain, Reports numbness and Reports radiating pain into limb (Lower extremities) Neurologic Neurologic: Reports numbness and Reports radicular pain PFSH <Diana Parham - Last Filed: 09/11/19 08:47> Social History Smoking/Tobacco Use Status: Current every day Tobacco Type: cigarettes Alcohol Intake: current Alcohol Intake frequency: holidays/special occasions only Alcohol type: beer Drug use: Occasionally Substance use type: marijuana Do you feel safe at home: Yes Do you feel safe in your relationship?: Yes Exam <Diana Parham [facility] Filed: 09/11/19 08:47> Const General: cooperative, healthy appearing and other (Uncomfortable) Nutritional Appearance: average body habitus and well nourished Orientation: alert, awake and oriented x3 Neck Neck: normal visual inspection Resp Effort & Inspection: normal respiratory effort Auscultation: clear to auscultation bilaterally, no rales, no rhonchi and no wheezes Cardio Rate: regular rate Rhythm: regular rhythm Heart Sounds: S1 normal and S2 normal GI Inspection: normal to inspection Palpation: soft Auscultation: normal bowel sounds Rectal Exam: visual inspection normal and normal sphincter tone Back/Spine/Pelvis Back: no CVA tenderness Cervical Spine: normal cervical lordosis Thoracic/Lumbar Spine: surgical scar(s) present, pain with thoraco-lumbar ROM, paraspinal tenderness, thoraco-lumbar spasm, lumbar spinal tenderness and straight leg raise positive Other: Rectal tone intact Neuro General: alert, awake, oriented x3 and tone normal Cognition: normal cognition Speech: speech normal Gait: shuffling and wide-based Motor: no pronator drift noted Sensory Exam: lower extremity left light-touch abnormal and perineum exam normal DTR's: Rt Patellar: 2+ and Lt Patellar: 2+ Plantar Reflexes: Upgoing: left (Decreased dorsaflexion on left ) Extrem General: no muscle atrophy Course <Diana Prasad Last Filed: 09/11/19 08:47> Vital Signs Vital signs: Vital Signs Temperature 36.6 C 09/10/19 12:16 Pulse 78 09/10/19 12:16 Respiratory Rate 18 09/10/19 12:16 Blood Pressure 142/81 H 09/10/19 12:16 Pulse Oximetry 98 09/10/19 12:16 Temperature 36.6 C 09/10/19 12:16 Pulse 78 09/10/19 12:16 Respiratory Rate 18 09/10/19 12:16 Blood Pressure 142/81 H 09/10/19 12:16 Pulse Oximetry 98 09/10/19 12:16 Oxygen Delivery Method Room Air 09/10/19 12:16 Oxygen Flow Rate 0 09/10/19 12:16 Pain Level 10 09/10/19 12:16 Sign Out <Diana Parham - Last Filed: 09/11/19 08:47> Sign Out Data: Sign Out Comment: Pending MRI L-spine R/O Cauda Equina Last updated by Diana Parham at 09/10/19 13:44
[2019-09-10] MEDS: Ondansetron 4 MG/2 ML VIAL IM (13:54)
[2019-09-10] MEDS: MORPHine 10 MG/ML VIAL 6 MG IM (13:55)
[2019-09-10 14:02] LABS: Bilirubin Negative (Negative); Blood Small (Negative); Clarity Clear (Clear); Glucose Negative (Negative); Ketones Negative (Negative); Leukocyte Esterase Negative (Negative); Nitrite Negative (Negative); Specific Gravity 1.025 (1.005-1.025); Urobilinogen 0.2 EU/dL (Up TO 0.2)
[2019-09-10 14:19] LABS: Bacteria Negative HPF (Negative); C & S Indicated? No; Casts Negative LPF (Negative); Crystals Negative HPF (Negative); Epithelial Cells Rare HPF (Negative); Mucus Negative (Negative); WBC 0-2 HPF (0-5)
[2019-09-10] MEDS: diazePAM 10 MG/2 ML SYR 5 MG IVP (14:22)
[2019-09-10] MEDS: Normal Saline Flush 10 ML SYR IVP (15:01)
[2019-09-10] MEDS: Gadoterate meglumine 20 ML VIAL IVP (15:02)
--- NOTE | 2019-09-10 15:10 | DI.MRI_ITS ---
EXAM: MR LUMBAR SPINE WO/W CLINICAL HISTORY: LUMBAR SPINE PAIN, URINARY INCONTINENCE, CONSTIPATION. TECHNIQUE: Multiplanar multisequence MRI was performed. COMPARISON: No exams were available for comparison FINDINGS: The conus medullaris has a normal appearance and location. At L5-S1, there is disc desiccation. There are degenerative endplate signal changes. There is a sma ll left paracentral disc herniation. No significant nerve root compression or central spinal canal s tenosis results. No significant neural foraminal stenosis is present. At L4-L5, there is no significant central spinal canal or neural foraminal stenosis. No focal disc h erniation is present. At L3-L4, there is no focal disc herniation, central spinal canal or neural foraminal stenosis. At L2-L3, there is no focal disc herniation, central spinal canal or neural foraminal stenosis. At L1-L2, there is no focal disc herniation, central spinal canal or neural foraminal stenosis. Following contrast administration, no enhancing lesions are identified. IMPRESSION: 1. No evidence of an obstructing mass or enhancing lesion in the spinal cord. 2. Small left paracentral disc herniation at L5-S1. No nerve root compression or central spinal coleman l stenosis results. 3. The findings were discussed with the Emergency Department on the date of the examination.
[2019-09-10] MEDS: methylPREDNISolone SUCC 125 MG VIAL IVP (15:36)
[2019-09-10 15:39] VITALS: BP 133/75; PULSE 70; RESP 18; O2SAT 96
[2019-09-10] MEDS: HYDROmorphone 2 MG/ML VIAL 1 MG IVP (15:49)
== END 2019-09-10 16:37 | disposition home or self-care (01) ==
PROVIDERS: Registered Nurse Emergency; Emergency Provider Student in an Organized Health Care Education/Training Program; PCP Family Medicine
DX: M54.5 Low back pain (principal); R20.2 Paresthesia of skin; S33.5XXA Sprain of ligaments of lumbar spine, initial encounter; X50.0XXA Overexertion from strenuous movement or load, initial encounter; Y99.0 Civilian activity done for income or pay
CPT/HCPCS: 36415; 72158; 96372; 96374; 96375; 99285; 81003; 81015; J2270; J2405; J2930; J3360